=== PATIENT | male | born 1945 | race Caucasian/White ===

== ENCOUNTER 2023-09-14 00:33 | Emergency (ER) | payer MEDICARE, SELFPAY ==
[2023-09-14 00:35] VITALS: BP 184/83; PULSE 69; RESP 17; TEMP 36.6; O2SAT 98; BMI 25.0
--- NOTE | 2023-09-14 00:35 | RAD_ITS ---
STUDY: X-RAY CHEST REASON FOR EXAM: Male, 78 years old patient with chest pain. TECHNIQUE: Single AP portable view of the chest. COMPARISON: Prior comparison studies are not available for review at this time. FINDINGS: Cardiac monitoring leads are present. Lungs are underexpanded with crowding of the bronchovascular markings. There is suggestion for heterogeneous airspace consolidation and groundglass attenuation in both lung bases. There is no demonstrated pleural abnormality. Normal size heart. Normal mediastinum and saul. There is prominence of the pulmonary hilar arteries with peripheral pulmonary vascular congestion. There is atherosclerotic tortuosity of the aortic arch and descending thoracic aorta. Normal visualized thoracic spine. Normal visualized ribs, clavicles, and shoulders. There is no demonstrated abnormality of the visualized soft tissue structures of the upper abdomen. RAD/Chest 1 View (Portable) IMPRESSION: 1. Expiratory chest radiograph with pulmonary congestion. 2. Bilateral basilar airspace disease suggests multifocal pneumonia. Electronically Signed: Marisol Weaver MD at 1:37 EDT ,
--- NOTE | 2023-09-14 00:35 | EKG12_ITS ---
Test Reason : CP Blood Pressure : / mmHG Vent. Rate : 065 BPM Atrial Rate : 065 BPM P-R Int : 164 ms QRS Dur : 100 ms QT Int : 382 ms P-R-T Axes : 057 032 054 degrees QTc Int : 397 ms Normal sinus rhythm Possible Left atrial enlargement Borderline ECG Confirmed by JULEE COULTER, FLORIN ([id number]), society editor DONNIE PARIKH ([id number]) on 09/14/2023 8:22:09 AM Referred By: ANNA Confirmed By:FLORIN LADD MD
--- NOTE | 2023-09-14 00:44 | EDS_ITS ---
HPI History of Present Illness Chief Complaint: Chest Pain Detail of Chief Complaint: Intermittent left-sided chest pain last 2 days. Informant: patient Onset/Context/Timing Onset: Yesterday Activity at onset: gradual Timing: Intermittent Quality: Positive for Aching Location: Left Parasternal Current Severity: Gone Maximum Severity: Mild Worsened By: Movement of Torso; Not Worsened By Exertion, Breathing or Coughing Relieved By: Nothing Associated Symptoms: Negative for Nausea, Vomiting, Diaphoresis, Dyspnea, Cough, Fever, Lightheadedness, Acid Reflux or Palpitations Narrative Narrative: 78-year-old male history of hiatal hernia and surgery in May or June to [facility]. He also has a enlarged prostate. No cardiac history. Prior stress test negative. 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 States that on Wednesday he kind of fell hitting his chest against the seat and the flight simulator. Since Wednesday has had intermittent left parasternal chest discomfort. It comes and goes. Not associated with exertion. No recent exertional dyspnea or exertional chest pain. He has no cardiac history. Says he uses a treadmill frequently and has no exertional symptoms. Patient been having intermittent chest pain for the last 2 days. Associated with movement of his torso. No dyspnea. No hemoptysis. No leg pain or swelling. No history of DVT or PE. Currently symptom-free. Prior Similar Symptoms: No Recent Illness/Hospitalization: No CVD Risk Factors: Positive for Hypercholesterolemia; Negative for Hypertension or Diabetes PE Risk Factors: Negative for Recent Travel/Surgery, Recent Immobilization, Prior DVT or PE, Cancer or OCP + Smoking + >/=35 TAD Risk Factors: Negative for Marfan's Syndrome or Hypertension [facility] Medical History Hyperlipemia Hiatal hernia Slow heart rate Enlarged prostate Home Medications ?Medication ?Instructions ?Recorded ?Last Taken ?Type atorvastatin 10 mg tablet 10 mg PO DAILY 09/14/23 Unknown History dutasteride 0.5 mg capsule 0.5 mg PO DAILY 09/14/23 Unknown History escitalopram oxalate 20 mg tablet 20 mg PO DAILY 09/14/23 Unknown History Allergy/AdvReac Type Severity Reaction Status Date / Time No Known Allergies Allergy Verified 09/14/23 00:35 Social History Smoking Status: Former smoker ROS ROS ED ROS Narrative Intermittent nonexertional chest pain. Review of Systems ROS Unobtainable: Denies due to encephalopathy Constitutional Constitutional ED: Denies chills or fever(s) Eyes Eyes: Reports none ENT ENT ED: Denies ear pain Cardiovascular Cardiovascular: Reports chest pain; Denies orthopnea, palpitations or racing heartbeat Respiratory/Chest Respiratory/Chest: Denies cough, dyspnea, dyspnea on exertion or orthopnea Gastrointestinal Gastrointestinal: Denies abdominal pain, constipation, diarrhea, melena, nausea or vomiting Genitourinary Genitourinary ED: Denies dysuria or hematuria Musculoskeletal Musculoskeletal: Denies arthralgias, myalgias or neck pain Integumentary Denies abscess or rash Neurologic Neurologic: Denies headache(s) or paresthesias Psychiatric Psychiatric: Denies anxiety or depression Endocrine Endocrinology: Denies cold intolerance Hematologic/Lymphatic Hematologic/Lymphatic: Denies easy bleeding Allergic/Immunologic Allergic/Immunologic ED: Denies mouth swelling EXAM Physical Exam Narrative Exam Narrative: Well-appearing 78-year-old male. Vital signs are stable and afebrile. Pulse ox 98% on room air no hypoxia. He is in no distress. Sitting upright in bed. Appears comfortable. No family present in the room. H EENT exam unremarkable. Pupils round reactive light. Moist mucous members. Neck nontender no. No lymphadenopathy. Lungs clear to auscultation bilaterally. Heart regular rate and rhythm no murmur rate about 70. Chest wall and ribs nontender. No bruising. No crepitus. No subcu air. Abdomen is soft and nontender. Absolutely no abdominal tenderness. No right upper quadrant or right lower quadrant tenderness. No distention. No signs of trauma. Pelvic girdle intact. Moving all 4 extremities. Calves are nontender without edema or cords. Equal and symmetrical brisk radial pulses. Normal filter cleaner strength. Back nontender. Neurologically is awake and alert no focal motor deficits. Answering questions and following commands. Const Vital Signs: 09/14/23 00:35 09/14/23 00:35 09/14/23 00:35 Temperature 97.8 F Temperature Source Temporal Pulse Rate 69 Respiratory Rate 17 Respiratory Effort Normal Non-Labored Blood Pressure 184/83 H Blood Pressure Mean 116 Pulse Ox 98 Oxygen Delivery Method Room Air Room Air 09/14/23 01:42 09/14/23 02:00 09/14/23 03:31 Temperature Temperature Source Pulse Rate 59 L 57 L 56 L Respiratory Rate 16 17 17 Respiratory Effort Blood Pressure 138/69 H 101/89 H Blood Pressure Mean 92 93 Pulse Ox 95 95 Oxygen Delivery Method Room Air Room Air Positive well nourished and well developed; Negative for obese, cachectic, contractures or unkempt General Appearance ED: well developed; Negative for unkempt, cachectic, contractures or pallor Nutritional Appearance: Negative for cachectic or obese HEENT Reports moist mucous membranes normocephalic and atraumatic; Negative for trauma or tenderness Eyes EOMs intact bilaterally General Eye ED: Negative for pale conjunctiva or scleral icterus Neck no lymphadenopathy, supple and no JVD General: Negative for tenderness Chest Wall inspection of chest normal and palpation of chest normal Chest Narrative: Nontender. No bruising. No crepitance. Chest: Negative for tenderness Resp normal respiratory effort and clear to auscultation bilaterally Effort and Inspection: Negative for respiratory distress Auscultation: Negative for rales, rhonchi, wheezes or diminished lung sounds Cardio regular rate, regular rhythm, S1 normal heart sound, S2 normal heart sound and no murmurs Rate: Negative for bradycardia or tachycardic Rhythm: Negative for abnormal rhythm GI normal to inspection, nondistended, normoactive bowel sounds, soft to palpation, non-tender, non-distended and no masses Auscultation: Negative for hyperactive bowel sounds Back/Spine no CVA tenderness and no thoracic nor lumbar tenderness General Back: Negative for CVA tenderness Cervical Spine: Negative for cervical spine tenderness Extremity normal to inspection General Extremety ED: Negative for edema, pulses abnormal or tenderness General Extremity: Negative for edema or pulses abnormal Neuro oriented x3 and CN's II-XII intact bilaterally Sensorium / Orientation: awake, alert, oriented to person, oriented to place and oriented to time; Negative for confused, lethargic or stuporous Motor Exam: strength 5/5 throughout Psych mental status grossly normal Appearance: Negative for unkempt Attitude: No agitated Mood & Affect: Negative for depressed, anxious or tearful Skin no rashes or lesions noted and no wounds General Skin Exam: Negative for jaundice or pallor Rashes: No rashes noted Trauma: Negative for abrasion, laceration or puncture Heart Score History: Slightly/Non-Suspicious ECG: Normal Age: >/= 65 years Risk Factors: No Risk Factors Troponin: </= Normal Limit Score: 2 MDM MDM MDM Narrative Medical decision making narrative: 78-year-old male with atypical, nonexertional and not reproducible chest discomfort. No significant cardiac risk factors. Prior negative stress test. Quit smoking more than 30 years ago. Undergo cardiac workup. No history or risk factors for DVT or PE. Historically and clinically not a dissection. Repeat exam patient is doing well at 1:40 AM. We went over his test results. Awaiting a 2-hour troponin. His neighbor was in the waiting room and I brought her back into the room with him. If his 2-hour troponin is unremarkable and he has no significant change in his clinical course will be discharged home with outpatient follow-up. Repeat exam patient doing well at 3:32 AM. Both troponins, chest x-ray EKG and other labs are unremarkable. Repeat oral temperature is 97.8. He will be discharged home with chest pain uncertain etiology. Outpatient follow-up as needed. Return if worse. History & Record Review Discussion w/independent historian: Patient Additional record(s) reviewed:: No prior records Lab Data Attestation: I reviewed the patient's lab results. Lab results narrative: CBC is normal. White count 7.5. H&H 14.7 and 44. Platelets 178. Chemistries unremarkable gap 5. Normal BUN of 18 creatinine 0.9. Glucose 107. First troponin is normal at 9. 2-hour troponin was 10. Labs: Laboratory Results - last 24 hr 09/14/23 09/14/23 00:45 02:50 WBC 7.5 RBC 4.62 Hgb 14.7 Hct 44.5 MCV 96.3 H MCH 31.8 MCHC 33.0 RDW Std Deviation 45.5 H RDW Coeff of [place]atha 12.8 Plt Count 178 MPV 10.8 Immature Gran % (Auto) 0.800 Neut % (Auto) 56.5 Lymph % (Auto) 32.2 [place] % (Auto) 9.0 Eos % (Auto) 1.1 Baso % (Auto) 0.4 Absolute Neuts (auto) 4.3 Absolute Lymphs (auto) 2.43 Nucleated RBC % 0 Sodium 137 Potassium 4.0 Chloride 103 Carbon Dioxide 29.0 Anion Gap 5 BUN 18 Creatinine 0.96 Estim Creat Clear Calc 68.63 Est GFR (MDRD) Af Amer 97 Est GFR (MDRD) Non-Af 80 BUN/Creatinine Ratio 18.7 Glucose 107 H Calcium 9.5 Troponin I High Sens 9 10 Radiography Chest X-Ray - ED: 1 View, Read by ED Physician, Normal, Lungs, Mediastinum, No Acute Disease and Chronic Changes Diagnostic Testing: Clinical Impression(s) from Imaging Studies Chest X-Ray 09/14/23 00:35 IMPRESSION: 1. Expiratory chest radiograph with pulmonary congestion. 2. Bilateral basilar airspace disease suggests multifocal pneumonia. Electronically Signed: Marisol Weaver MD at 1:37 EDT Reading Location ID and State: [address] [place] [address] , Service support , Chest x-ray, portable, single view interpreted by myself shows no acute abnormality. Normal cardiac silhouette. Normal mediastinum. Lung perez unremarkable. Suspect atelectasis left base. I reviewed the radiologist interpretation after mine clinically this patient has no signs of pneumonia. I believe that to be atelectasis in the bases. Rhythm Strip Rhythm Strip: Sinus Rhythm Rate: 65 Ectopy: None EKG Initial EKG: Attestation: I personally reviewed and interpreted this EKG as follows: Interpretation: Sinus Rhythm and No Acute Injury Pattern Comments: Normal sinus rhythm rate of 65 no acute signs of CO or ischemia. No [id number]. Prior EKG tracings: not available for review Discharge Plan Triage Chief Complaint: Chest Pain ED Provider: [facility] Dx/Rx/DC Orders Clinical Impression: Chest pain Instructions: ED Chest Pain, Uncertain Cause Prescriptions: No Action atorvastatin 10 mg tablet 10 mg PO DAILY escitalopram oxalate 20 mg tablet 20 mg PO DAILY dutasteride 0.5 mg capsule 0.5 mg PO DAILY Primary Care Provider: Annita Bob Referrals: Annita Bob MD [Primary Care Provider] - 3-5 Days Activity Restrictions/Additional Instructions: Tylenol for any discomfort. Follow-up with your doctor if not improving or return if worse. Your labs and EKG today were unremarkable. Print Language: Khmer Disposition Disposition: Home, Self Care
[2023-09-14] MEDS: Aspirin 81 MG TAB.CHEW 324 MG PO (00:50)
[2023-09-14 00:55] LABS: Absolute Lymphocyte Count 2.43 X10^3/uL (0.83-4.51); Absolute Neutrophil Count 4.3 X10^3/uL (2.0-7.7); Basophil# 0.03 X10^3/uL; Basophil% 0.4 % (0-1); Eosinophil# 0.08 X10^3/uL; Eosinophils% 1.1 % (0-5); Hematocrit 44.5 % (40-54); Hemoglobin 14.7 g/dL (13.0-16.5); Lymphocyte # 2.43 X10^3/ul (0.83-4.51); Lymphocyte % 32.2 % (19-41); Mean Corpuscular Hgb 31.8 pg (27.0-32.0); Mean Corpuscular Volume 96.3 fL (80-94); Mean Platelet Vol. 10.8 fl (6.2-12.0); Monocyte# 0.68 X10^3/uL; NRBC Flagged by Analyzer 0 % (0-5); Neutrophil # 4.26 X10^3/uL (2.7-7.7); Neutrophil % 56.5 % (47-70); Platelet Count 178 K/mm3 (150-450); RBC Distribution Width CV 12.8 % (11.6-14.6); RBC Distribution Width SD 45.5 fl (35.1-43.9); Red Blood Count 4.62 M/mm3 (4.6-6.2); White Blood Count 7.5 K/mm3 (4.4-11.0)
[2023-09-14 01:11] LABS: Anion Gap 5 (5-15); BUN 18 mg/dL (7-18); BUN/Creat Ratio 18.7 RATIO (10-20); Calcium,Total 9.5 mg/dL (8.5-10.1); Chloride 103 mmol/L (98-107); Creatinine, Serum 0.96 mg/dL (0.70-1.30); EST Glomerular Filtration Rate 80 mL/min (>60); Est Glom Filt Rate - Afr Amer 97 mL/min (>60); Estimated Creatinine Clearance 68.63 ml/min; Glucose 107 mg/dL (74-106); Sodium Level 137 mmol/L (136-145); Troponin-I HS (w/2H Reflex) 9 pg/mL (3.0-78.0)
[2023-09-14 01:42] VITALS: BP 138/69; PULSE 59; RESP 16; O2SAT 95
[2023-09-14 02:00] VITALS: BP 101/89; PULSE 57; RESP 17; O2SAT 95
[2023-09-14 02:50] LABS: Reflex Troponin-HS? (from REC) Y
[2023-09-14 03:27] LABS: Troponin-I HS 10 pg/mL (3.0-78.0)
[2023-09-14 03:31] VITALS: PULSE 56; RESP 17
[2023-09-14 03:38] VITALS: BP 135/67; PULSE 58; RESP 14; TEMP 36.6; O2SAT 95
== END 2023-09-14 03:38 | disposition home or self-care (01) ==
PROVIDERS: Emergency Provider Emergency Medicine; PCP Internal Medicine; Visit Provider Emergency Medicine
DX: R07.9 Chest pain, unspecified (principal); Z87.891 Personal history of nicotine dependence; E78.00 Pure hypercholesterolemia, unspecified; N40.0 Benign prostatic hyperplasia without lower urinary tract symptoms
CPT/HCPCS: 71045; 80048; 84484; 85025; 93005; 99284; A4216